=== PATIENT | female | born 1955 | race Caucasian/White ===

== ENCOUNTER → 2016-11-24 | Outpatient (CLI) | payer BC ==
[~2016-11-24] MED LIST: FLUO40CA2 PO; FURO-69 PO; LOSA1TAB18 PO; METF500T4 PO; PANT40GR PO
--- NOTE | 2016-11-24 16:14 | RAD ---
Indication pneumonia. Cough. Frontal and lateral views of the chest were obtained. No prior imaging of the chest is available. Heart size is at the upper limits of normal. There is no congestive heart failure. There is no focal infiltrate significant pleural fluid collection or pneumothorax. IMPRESSION: No acute or focal process is seen in the chest
== END | disposition home or self-care (01) ==
LOC: DXRAD 15:24
PROVIDERS: ATTEND Nurse Practitioner Family
DX: J18.9 Pneumonia, unspecified organism (principal)
CPT/HCPCS: 71020